=== PATIENT | female | born 1960 | race Two or more races ===

== ENCOUNTER 2021-01-08 12:21 | Outpatient (CLI) | payer OTHER | END 2021-01-08 23:59 | disposition home or self-care (01) | LOC: LAB 12:21 | PROVIDERS: ATTEND Specialist | DX: Z01.812 Encounter for preprocedural laboratory examination (principal); Z20.822 Contact with and (suspected) exposure to COVID-19 | CPT/HCPCS: C9803; U0003 ==

== ENCOUNTER 2021-01-15 06:46 | Inpatient (IN) | payer OTHER ==
[~2021-01-15] VITALS: Ht 157.5 cm; Wt 111.1 kg
[2021-01-15] MEDS ORDERED: ANESTHESIA TRAY IN PYXIS 1 EA TRAY MC ONE (07:16)
[2021-01-15] MEDS ORDERED: BUPIVACAINE 0.5 % PF 150 MG/30 ML VIAL ONE (07:17)
[2021-01-15] MEDS ORDERED: BACITRACIN 50000 UNITS/VIAL ONE (07:18)
[2021-01-15] MEDS ORDERED: BUPIVACAINE 0.25% 75 MG/30 ML VIAL ONE (07:18)
[2021-01-15] MEDS ORDERED: PROPOFOL 20 ML IV ONE (08:56)
[2021-01-15] MEDS ORDERED: MIDAZOLAM HCL 2 MG/2ML VIAL ONE (08:56)
[2021-01-15] MEDS ORDERED: FENTANYL PF 100MCG/2ML AMPUL ONE ×2 (08:56→10:38)
[2021-01-15] MEDS ORDERED: TRANEXAMIC ACID 3,000 MG in SODIUM CHLORIDE IRRIG SOLUTION 70 ML IR ONE (09:30)
[2021-01-15] MEDS ORDERED: HYDROMORPHONE 1 MG/1 ML DISP.SYRIN ONE (11:03)
[2021-01-15] MEDS ORDERED: ZOFRAN 4mg/2ML IV PRN (11:30)
--- NOTE | 2021-01-15 11:30 | NUR ---
RN MS NOTES RECEIVED PT FROM O.R. STAFF VIA BED, PT IS AWAKE, ALERT AND VERBALLY RESPONSIVE, ROOM SET UP ORIENTATION PROVIDED, VERBALIZED UNDERSTANDING, WITH COMPLAINT OF PAIN TO RIGHT KNEE, DRESSING DRY AND INTACT, KNEE IMMOBILIZER IN PLACE, DVT PUMP TO LEFT LEG IN PLACE, VITAL SIGNS TAKEN AND RECORDED, POST OP ORDERS RECEIVED FROM DR. CONN, NOTED AND CARRIED OUT, AWAITING FURTHER ORDERS FROM DR. RECINOS.
[2021-01-15 11:45] VITALS: BP 162/72
[2021-01-15 12:00] VITALS: BP 145/74
[2021-01-15 12:15] VITALS: BP 134/66
[2021-01-15 12:30] VITALS: BP 133/71
[2021-01-15] MEDS ORDERED: MORPHINE SULFATE INJ 2 MG/ML DISP.SYRIN IV PRN (12:30)
[2021-01-15] MEDS ORDERED: diphenhydrAMINE HCL 25 MG CAPSULE PO PRN ×2 (12:30)
[2021-01-15] MEDS ORDERED: MAGNESIUM HYDROXIDE 30 ML UDC PO PRN (12:30)
[2021-01-15] MEDS ORDERED: NALOXONE HCL 0.4 MG/ML AMPUL IV PRN (12:30)
[2021-01-15] MEDS ORDERED: BISACODYL SUPP (10 MG) 10 MG/SUPP.RECT SUPP.RECT RC PRN (12:30)
[2021-01-15] MEDS ORDERED: ONDANSETRON HCL/PF 4 MG/2 ML VIAL IVP PRN (12:30)
[2021-01-15] MEDS ORDERED: MENTHOL/CETYLPYRD (CEPACOL) 1 LOZ LOZENGE MM PRN (12:30)
[2021-01-15] MEDS ORDERED: MAG HYDROX/AL HYDROX/SIMETH 30 ML UDC PO PRN (12:30)
[2021-01-15] MEDS ORDERED: CLONIDINE HCL 0.1 MG TABLET PO PRN (12:30)
[2021-01-15] MEDS: MORPHINE SULFATE INJ 4 MG/ML DISP.SYRIN IM PRN ×2 (12:34→18:58)
[2021-01-15] MEDS ORDERED: TRAM50TA2 PO (12:44)
[2021-01-15] MEDS ORDERED: GABA-532 PO (12:44)
[2021-01-15] MEDS ORDERED: MAGN400T26 PO (12:44)
[2021-01-15] MEDS ORDERED: BUPR-54 PO (12:44)
[2021-01-15] MEDS ORDERED: OXYC-133 PO (12:44)
[2021-01-15] MEDS ORDERED: oxyCODONE IR immediate release 5 MG PO PRN (13:00)
[2021-01-15] MEDS ORDERED: ZOLPIDEM TARTRATE 5 MG TABLET PO PRN (13:30)
[2021-01-15] MEDS ORDERED: Z GUARD REMEDY 2 OZ OINT TP PRN (13:30)
[2021-01-15] MEDS ORDERED: oxyCODONE IR immediate release 5 MG PO ONE (14:34)
[2021-01-15] MEDS ORDERED: ONDANSETRON HCL/PF 4 MG/2 ML VIAL IVP ONE (14:34)
[2021-01-15] MEDS: BUPROPION XL 150 MG TAB.ER.24 PO SCH (14:57)
[2021-01-15] MEDS: MAGNESIUM OXIDE 400 MG TABLET PO SCH (14:57)
[2021-01-15] MEDS: MORPHINE SULFATE INJ 2 MG/ML DISP.SYRIN IV PRN ×2 (15:48→22:16)
[2021-01-15 16:00] VITALS: BP 128/68
[2021-01-15] MEDS: ANCEF 1 G in IV D5W 50 ML IV SCH (17:54)
[2021-01-15] MEDS: FAMOTIDINE (20 MG) 20 MG TABLET PO SCH (17:57)
[2021-01-15] MEDS: DOCUSATE SODIUM 100 MG CAPSULE PO SCH (17:57)
--- NOTE | 2021-01-15 19:15 | NUR ---
RN MS NOTES PT IN BED, AWAKE, ALERT AND ORIENTED, PT SEEN BY DR. RECINOS, NEW ORDERS GIVEN, PAIN MEDS GIVEN ORDERED, ASSISTED WITH TOILETING NEEDS, ALL NEEDS ATTENDED.
--- NOTE | 2021-01-15 19:30 | NUR ---
MS RN OPENING NOTE RECEIVED PATIENT IN BED. A/OX4. TOLERATING ROOM AIR. RESPIRATIONS ARE EVEN AND UNLABORED. NO S/S SOB NOTED. C/O PAIN BUT JUST RECEIVED PAIN MEDICATION. IN NO APPARENT DISTRESS. IV ACCESS IN LEFT HAND#22 PATENT AND SALINE LOCKED. BED IS LOW AND LOCKED, HOB ELEVATED IN SEMI FOWLERS, SIDE RIALS UP X2, CALL LIGHT WITHIN REACH. WILL CONTINUE TO MONITOR THROUGHOUT SHIFT.
[2021-01-15 20:00] VITALS: BP 123/64
[2021-01-15] MEDS: GABAPENTIN 100 MG CAPSULE PO SCH (21:21)
[2021-01-16] MEDS: ANCEF 1 G in IV D5W 50 ML IV SCH
[2021-01-16] MEDS: MORPHINE SULFATE INJ 2 MG/ML DISP.SYRIN IV PRN ×5 (02:30→17:56)
--- NOTE | 2021-01-16 06:00 | NUR ---
MS RN NOTE DR. RECINOS SEEN PATIENT, STATED TO GIVE MORPHINE 3MG IV NOW AND GIVE OXY -IR WITH BREAKFAST. ORDER STATED BACK, NOTED AND CARRIED OUT. WILL INFORM AM RN TO GIVE OXY-IR WITH BREAKFAST BREAKFAST TRAY ARRIVES ON DAY SHIFT.
[2021-01-16 06:03] LABS: BASOPHILS % (AUTO) 0.1 % (0.0-2.0); EOSINOPHILS % (AUTO) 0.3 % (0.0-6.0); HEMATOCRIT 37 % (33-45); HEMOGLOBIN 11.9 g/dL (11.5-14.8); LYMPHOCYTES # (AUTO) 1.3 /CMM (0.8-4.8); MEAN CORPUSCULAR HGB CONC 32 g/dl (31.0-36.0); MEAN CORPUSCULAR VOLUME 88 fL (82-100); MONOCYTES % (AUTO) 6.8 % (2.0-12.0); NEUTROPHILS # (AUTO) 12.5 /CMM (1.8-8.9); NEUTROPHILS % (AUTO) 83.8 % (43.0-81.0); PLATELET COUNT (AUTO) 256 /CMM (150-450); RED BLOOD CELL COUNT(AUTO) 4.17 MIL/uL (4.0-5.2); WHITE BLOOD COUNT (AUTO) 14.9 K/uL (4.3-11.0)
[2021-01-16 06:16] LABS: CALCIUM, SERUM 8.5 mg/dL (8.5-10.1); CREATININE 0.9 mg/dL (0.6-1.3); MAGNESIUM 2.2 mg/dL (1.8-2.4); PHOSPHORUS 3.3 mg/dL (2.5-4.9); POTASSIUM 4.4 mmol/L (3.5-5.1)
--- NOTE | 2021-01-16 06:53 | NUR ---
MS RN CLOSING NOTE PATIENT RESTING IN BED. A/OX4. REMAINS TOLERATING ROOM AIR. NO RESP DISTRESS. MANAGED PAIN WITH MORPHINE. NO DISTRESS. IV ACCESS MAINTAINED IN LEFT HAND#22. BED REMAINS LOW AND LOCKED, HOB ELEVATED IN SEMI FOWLERS, SIDE RIALS UP X2, CALL LIGHT WITHIN REACH. WILL ENDORSE TO ONCOMING SHIFT.
[2021-01-16 08:00] VITALS: BP 150/61
[2021-01-16] MEDS: MAGNESIUM OXIDE 400 MG TABLET PO SCH (08:22)
[2021-01-16] MEDS: ASPIRIN EC 325 MG TABLET.DR PO SCH (08:22)
[2021-01-16] MEDS: BUPROPION XL 150 MG TAB.ER.24 PO SCH (08:22)
[2021-01-16] MEDS: oxyCODONE IR immediate release 5 MG PO PRN ×4 (08:22→20:23)
[2021-01-16] MEDS: FAMOTIDINE (20 MG) 20 MG TABLET PO SCH ×2 (08:23→17:51)
[2021-01-16] MEDS: DOCUSATE SODIUM 100 MG CAPSULE PO SCH ×2 (08:24→17:52)
[2021-01-16] MEDS ORDERED: COLACE 100 MG CAPSULE PO SCH (09:00)
[2021-01-16] MEDS ORDERED: Naloxone Hcl IV (11:44)
[2021-01-16] MEDS ORDERED: DOCU-270 PO (11:44)
[2021-01-16] MEDS ORDERED: OXYC5CAP18 PO (11:44)
[2021-01-16] MEDS ORDERED: FAMO20TA80 PO (11:44)
[2021-01-16] MEDS ORDERED: Morphine Sulfate Inj IV (11:44)
[2021-01-16] MEDS ORDERED: ASPI-869 PO (11:44)
[2021-01-16 16:00] VITALS: BP 149/81
--- NOTE | 2021-01-16 17:07 | NUR ---
medicated x 3 with oxy-ir and x2 with morphine.up x2 with phy tx.tolerated fairly well.
--- NOTE | 2021-01-16 19:52 | NUR ---
MS RN OPENING NOTE RECEIVED PT AWAKE IN BED. A/O X4. PT STABLE ON ROOM AIR. NO SOB NOTED. NO S/S OF RESPIRATORY DISTRESS. PT IS AMBULATORY WITH ASSIST. PT HAS NO C/O PAIN AT THIS TIME. IV ACCESS IN LEFT HAND #22. IV IS INTACT, PATENT, AND FLUSHING WELL. SAFETY MEASURES MAINTAINED. BED IN LOWEST LOCKED POSITION, HOB ELEVATED, SIDE RAILS UP X2. CALL LIGHT AND TABLE WITHIN REACH. WILL CONTINUE WITH PLAN OF CARE.
[2021-01-16 20:00] VITALS: BP 144/75
--- NOTE | 2021-01-16 20:23 | NUR ---
MS RN PAIN PT C/O ACHING PAIN IN RIGHT KNEE, RATED 8/10 ON 1-10 PAIN SCALE. VS BP 144/25, HR 83, RR 18, T 98.2, SPO2 95%. PER PT REQUEST, ADMINISTERED OXYCODONE IR 10 MG PO Q3H PRN FOR PAIN. WILL CONTINUE TO MONITOR.
[2021-01-16] MEDS: GABAPENTIN 100 MG CAPSULE PO SCH (21:47)
[2021-01-17] MEDS: MORPHINE SULFATE INJ 2 MG/ML DISP.SYRIN IV PRN (00:11)
--- NOTE | 2021-01-17 00:11 | NUR ---
MS RN PAIN PT C/O ACHING PAIN IN RIGHT KNEE, RATED 6/10 ON 1-10 PAIN SCALE. VS BP 152/69, HR 83, RR 18, T 98.0, SPO2 98%. PER PT REQUEST, ADMINISTERED MORPHINE SULFATE 3 MG IV Q3H PRN FOR PAIN. WILL CONTINUE TO MONITOR.
[2021-01-17] MEDS: oxyCODONE IR immediate release 5 MG PO PRN ×6 (03:37→23:39)
--- NOTE | 2021-01-17 03:37 | NUR ---
MS RN PAIN PT C/O ACHING PAIN IN RIGHT KNEE, RATED 9/10 ON 1-10 PAIN SCALE. VSS. PER PT REQUEST, ADMINISTERED OXYCODONE IR 10 MG PO Q3H PRN FOR PAIN. WILL CONTINUE TO MONITOR.
--- NOTE | 2021-01-17 04:40 | NUR ---
DR. RECINOS CALLED AND WAS UPDATED ON PTS CONDITION AND PAIN MANAGEMENT..
--- NOTE | 2021-01-17 06:03 | NUR ---
MS RN CLOSING NOTE PT IS AWAKE IN BED AT THIS TIME. A/O X4. PT STABLE ON ROOM AIR. NO SOB NOTED. NO S/S OF RESPIRATORY DISTRESS. PT IS AMBULATORY WITH ASSIST. IV ACCESS IS INTACT, PATENT, AND FLUSHING WELL. ALL NEEDS HAVE BEEN MET. PAIN MANAGEMENT ADMINISTERED PER ORDER. SAFETY MEASURES MAINTAINED AT ALL TIMES. BED IN LOWEST LOCKED POSITION, HOB ELEVATED, SIDE RAILS UP X2. CALL LIGHT AND TABLE WITHIN REACH. WILL ENDORSE TO ONCOMING NURSE FOR MELISSA.
[2021-01-17 07:55] VITALS: BP 132/70
--- NOTE | 2021-01-17 08:02 | NUR ---
MS RN OPENING NOTES RECEIVED PATIENT IN BED, AWAKE, A/O X4. PATIENT ON ROOM AIR; BREATHING IS EVEN AND UNLABORED; NO SOB PRESENT AT THIS TIME. NO COMPLAINS OF ACUTE PAIN. L HAND IV ACCESS G # 22 PRESENT AND INTACT. SAFETY PRECAUTIONS IN PLACE; BED IN LOW POSITION AND LOCKED, RAILS UP X2, CALL LIGHT WITHIN REACH. WILL CONTINUE TO MONITOR PATIENT.
[2021-01-17] MEDS: DOCUSATE SODIUM 100 MG CAPSULE PO SCH ×2 (08:30→16:10)
[2021-01-17] MEDS: MAGNESIUM OXIDE 400 MG TABLET PO SCH (08:30)
[2021-01-17] MEDS: BUPROPION XL 150 MG TAB.ER.24 PO SCH (08:30)
[2021-01-17] MEDS: FAMOTIDINE (20 MG) 20 MG TABLET PO SCH ×2 (08:30→16:10)
[2021-01-17] MEDS: ASPIRIN EC 325 MG TABLET.DR PO SCH (08:30)
[2021-01-17] MEDS ORDERED: MAGNESIUM HYDROXIDE 30 ML UDC PO ONE (09:44)
[2021-01-17 16:46] VITALS: BP 151/78
--- NOTE | 2021-01-17 18:52 | NUR ---
MS RN CLOSING NOTES PATIENT REMAINS IN BED, AWAKE, A/O X4. PATIENT ON ROOM AIR; BREATHING IS EVEN AND UNLABORED; NO SOB PRESENT AT THIS TIME. PAIN TREATED WITH PRN PAIN MEDICATION. L HAND IV ACCESS G # 22 PRESENT AND INTACT. ALL NEEDS ATTENDED THROUGHOUT THE DAY. SAFETY PRECAUTIONS IN PLACE; BED IN LOW POSITION AND LOCKED, RAILS UP X2, CALL LIGHT WITHIN REACH. WILL ENDORSE TO CIRCULAR SAWYER HELPER NURSE.
[2021-01-17 20:00] VITALS: BP 125/67
[2021-01-17] MEDS: GABAPENTIN 100 MG CAPSULE PO SCH (21:55)
--- NOTE | 2021-01-17 23:39 | NUR ---
MS RN PAIN PT C/O ACHING PAIN IN RIGHT KNEE, RATED 8/10 ON 1-10 PAIN SCALE. VS BP 125/67, HR 95, RR 18, T 98.2, SPO2 99%. PER PT REQUEST, ADMINISTERED OXYCODONE IR 10 MG PO Q3H PRN FOR PAIN. WILL CONTINUE TO MONITOR.
[2021-01-18] MEDS: oxyCODONE IR immediate release 5 MG PO PRN ×5 (03:00→21:33)
[2021-01-18] MEDS: ASPIRIN EC 325 MG TABLET.DR PO SCH (07:45)
--- NOTE | 2021-01-18 07:58 | NUR ---
MS RN OPENING NOTE RECEIVED PT AWAKE IN BED. A/O X4. PT STABLE ON ROOM AIR. NO SOB NOTED. NO S/S OF RESPIRATORY DISTRESS. PT IS AMBULATORY WITH ASSIST. PT HAS NO C/O PAIN AT THIS TIME. IV ACCESS IN LEFT HAND #22. IV IS INTACT, PATENT, AND FLUSHING WELL. SAFETY MEASURES MAINTAINED. BED IN LOWEST LOCKED POSITION, HOB ELEVATED, SIDE RAILS UP X2. CALL LIGHT AND TABLE WITHIN REACH AND ANSWERED PROMPTLY
[2021-01-18 08:00] VITALS: BP 155/70
[2021-01-18] MEDS: BUPROPION XL 150 MG TAB.ER.24 PO SCH (08:13)
[2021-01-18] MEDS: MAGNESIUM OXIDE 400 MG TABLET PO SCH (08:13)
[2021-01-18] MEDS: DOCUSATE SODIUM 100 MG CAPSULE PO SCH ×2 (08:13→17:37)
[2021-01-18] MEDS: FAMOTIDINE (20 MG) 20 MG TABLET PO SCH ×2 (08:13→17:38)
[2021-01-18 13:03] LABS: BASOPHILS # (AUTO) 0.1 /CMM (0.0-0.2); BASOPHILS % (AUTO) 0.5 % (0.0-2.0); EOSINOPHILS % (AUTO) 2.5 % (0.0-6.0); HEMATOCRIT 34 % (33-45); HEMOGLOBIN 11.3 g/dL (11.5-14.8); LYMPHOCYTES # (AUTO) 1.6 /CMM (0.8-4.8); LYMPHOCYTES % (AUTO) 15.4 % (20.0-44.0); MEAN CORPUSCULAR HGB CONC 33 g/dl (31.0-36.0); MEAN CORPUSCULAR VOLUME 87 fL (82-100); MONOCYTES # (AUTO) 0.8 /CMM (0.1-1.30); MONOCYTES % (AUTO) 7.7 % (2.0-12.0); NEUTROPHILS # (AUTO) 7.7 /CMM (1.8-8.9); NEUTROPHILS % (AUTO) 73.9 % (43.0-81.0); PLATELET COUNT (AUTO) 212 /CMM (150-450); RED BLOOD CELL COUNT(AUTO) 3.89 MIL/uL (4.0-5.2); WHITE BLOOD COUNT (AUTO) 10.4 K/uL (4.3-11.0)
[2021-01-18 13:11] LABS: CALCIUM, SERUM 8.4 mg/dL (8.5-10.1); CREATININE 0.8 mg/dL (0.6-1.3); MAGNESIUM 2.1 mg/dL (1.8-2.4); POTASSIUM 4.3 mmol/L (3.5-5.1)
[2021-01-18 16:00] VITALS: BP 153/76
--- NOTE | 2021-01-18 17:15 | NUR ---
MS MONISHA OPENING NOTES Patient is awake, A&Ox4. States that pain went down to a 3 and is tolerable. States that her R knee is very sore though and she was able to use her CPM machine several times already today and walked around several times with and without PT. Patient refuses to use CPM machine tonight before bed, but states she will in the morning. No other issues at this time. No signs of distress. Safety measures in place. Addendum: 01/18/21 at 2039 by BRIAN HERNANDEZ RN amendment: time should be [id number] not [id number]
--- NOTE | 2021-01-18 18:34 | NUR ---
MS RN CLOSING NOTE RECEIVED PT AWAKE IN BED. A/O X4. PT STABLE ON ROOM AIR. NO SOB NOTED. NO S/S OF RESPIRATORY DISTRESS. PT IS AMBULATORY WITH ASSIST. PT HAS NO C/O PAIN AT THIS TIME. IV ACCESS IN LEFT HAND #22. IV IS INTACT, PATENT, AND FLUSHING WELL. SAFETY MEASURES MAINTAINED. BED IN LOWEST LOCKED POSITION, HOB ELEVATED, SIDE RAILS UP X2. CALL LIGHT AND TABLE WITHIN REACH AND ANSWERED PROMPTLY
--- NOTE | 2021-01-18 19:15 | NUR ---
MS RN OPENING NOTES Patient is awake, A&Ox4. States that pain went down to a 3 and is tolerable. States that her R knee is very sore though and she was able to use her CPM machine several times already today and walked around several times with and without PT. Patient refuses to use CPM machine tonight before bed, but states she will in the morning. No other issues at this time. No signs of distress. Safety measures in place.
[2021-01-18 20:16] VITALS: BP 143/68
--- NOTE | 2021-01-18 20:40 | NUR ---
Patient's IV flushed with saline where it was seen to be infiltrated. No pain, redness, or swelling. IV removed. Patient refused to have new IV inserted -stating she does not need or want it. Educated pt x3 that it is good to have in case of emergencies and if she needs her PRN Morphine. Still refused.
[2021-01-18] MEDS: GABAPENTIN 100 MG CAPSULE PO SCH (21:32)
--- NOTE | 2021-01-18 22:06 | NUR ---
MS RN NOTES Patient c/o pain to R knee. PRN Oxycodone IR given as per patient request and md order. Patient was then agreeable to use the CPM machine because she said she was able to take a nap and has more energy.
[2021-01-18 23:30] LABS: BILIRUBIN,URINE NEGATIVE (NEGATIVE); COLOR,URINE YELLOW (YELLOW); LEUKOCYTE ESTERASE ,URINE NEGATIVE (NEGATIVE); NITRITE, URINE NEGATIVE (NEGATIVE); PH,URINE 6.5 (5.0-8.0); PROTEIN,URINE NEGATIVE (NEGATIVE); UGLUCOSE NEGATIVE (NEGATIVE); UROBILINOGEN,URINE 0.2 EU/dL (0.2)
[2021-01-18 23:40] LABS: BACTERIA,URINE None seen /HPF (None Seen); RBC,URINE 0-2 /HPF (0-2); WBC,URINE 0-2 /HPF (0-3)
[2021-01-18 23:41] LABS: SQUAMOUS EPITHELIAL CELL,UR Few /HPF (None Seen)
[2021-01-19] MEDS: oxyCODONE IR immediate release 5 MG PO PRN ×6 (02:10→21:46)
--- NOTE | 2021-01-19 02:10 | NUR ---
MS RN NOTES Patient c/o 9/10 pain to R knee after waking and ambulating to bathroom with assist. Patient requests Pain medication. Oxycodone IR given as ordered.
--- NOTE | 2021-01-19 02:15 | NUR ---
MS RN NOTES Patient states she feels a little constipated but does not want MOM because last time it was too harsh and caused explosive diarrhea. Prune juice offered -pt accepted and is waiting to see for effect.
--- NOTE | 2021-01-19 05:15 | NUR ---
MS RN NOTES Patient c/o 10/10 R knee pain. PRN Oxycodone given as ordered. Ice pack also given.
--- NOTE | 2021-01-19 06:18 | NUR ---
MS RN CLOSING NOTES Patient is A&O4. VSS. Afebrile. C/o pain to R knee x3 throughout the night but after PO pain medication administration pain became tolerable. Continue with pain regimen as ordered and requested. Tolerated CPM machine. is motivated to increase activity as tolerated. Uses incentive spirometer correctly during waking hours.
--- NOTE | 2021-01-19 07:40 | NUR ---
MS RN OPENING NOTE RECEIVED PATIENT AWAKE IN BED. A/O X4. PT STABLE ON ROOM AIR. NO SOB NOTED, NO S/S OF RESPIRATORY DISTRESS. MINIMAL PAIN AT THIS TIME. DR. RECINOS AT BEDSIDE. PT IS AMBULATORY WITH ASSIST. NO IV ACCESS - PATIENT DOES NOT WANT A NEW ONE. SAFETY MEASURES MAINTAINED. CALL LIGHT WITHIN REACH. WILL CONTINUE TO MONITOR.
[2021-01-19] MEDS: MAGNESIUM OXIDE 400 MG TABLET PO SCH (08:26)
[2021-01-19] MEDS: BUPROPION XL 150 MG TAB.ER.24 PO SCH (08:26)
[2021-01-19] MEDS: DOCUSATE SODIUM 100 MG CAPSULE PO SCH ×2 (08:26→16:13)
[2021-01-19] MEDS: FAMOTIDINE (20 MG) 20 MG TABLET PO SCH ×2 (08:26→16:13)
[2021-01-19] MEDS: ASPIRIN EC 325 MG TABLET.DR PO SCH (08:27)
--- NOTE | 2021-01-19 18:54 | NUR ---
MS RN CLOSING NOTE PATIENT CURRENTLY LYING IN BED, AWAKE. A/O X4. PT STABLE ON ROOM AIR. NO SOB NOTED, NO S/S OF RESPIRATORY DISTRESS. MINIMAL PAIN AT THIS TIME. ON CPM FOR 2HOURS AT A TIME, TID. PATIENT IS VERY MOTIVATED TO RECOVER. AMBULATORY WITH WALKER. NO IV ACCESS - PATIENT REFUSES, SAYS SHE IS FINE WITH THE OXY IR 10MG. SAFETY MEASURES MAINTAINED. CALL LIGHT WITHIN REACH. WILL ENDORSE TO COMPETITIVE INTELLIGENCE MANAGER NURSE FOR MELISSA.
--- NOTE | 2021-01-19 19:40 | NUR ---
MS RN NOTES RECEIVED ON BED CALM AND QUIET,S/P RIGHT TOTAL KNEE ARTHROPLASTY,DRESSING IN PLACE DRY AND INTACT,NO IV ACCESS,PATIENT REFUSED.ENCOURAGED TO USE INCENTIVE SPIROMETRY FOR LUNG EXERCISE WHILE AWAKE,WILL MONITOR FOR PAIN,CALL LIGHT IN REACH,NEEDS ANTICIPATED.
[2021-01-19 20:00] VITALS: BP 118/58
[2021-01-19] MEDS: GABAPENTIN 100 MG CAPSULE PO SCH (21:23)
--- NOTE | 2021-01-19 21:46 | NUR ---
MS RN NOTES C/O PAIN 8/10 ON PAIN SALE VIA RIGHT KNEE,POST AMBULATION FROM THE RESTROOM.,MEDICATED WITH OXY IR 10 MG PO ORDERED FOR SEVERE PAIN.WILL MONITOR FOR RELIEF.
--- NOTE | 2021-01-19 23:00 | NUR ---
MS RN NOTES LYING ON BED CALM AND RELAX.
--- NOTE | 2021-01-20 | NUR ---
MS RN NOTES AWAKE,ASKING AGAIN FOR PAIN MANAGEMENT.FEELING UNCOMFORTABLE WITH BROWN ELASTIC BANDAGE,FIXED AND REWRAPPED.
[2021-01-20] MEDS: oxyCODONE IR immediate release 5 MG PO PRN ×5 (00:42→20:06)
--- NOTE | 2021-01-20 00:42 | NUR ---
MS RN NOTES PAIN MANAGEMENT C/O RIGHT KNEE PAIN 8/10 ON PAIN SCALE,OXY IR 10MG PO GIVENAS ORDERED AND PER PATIENT REQUEST.
--- NOTE | 2021-01-20 04:40 | NUR ---
MS RN NOTES PAIN MANAGEMENT AWAKE,IN PAIN 9/10 ON PAIN SCALE,OXY IR 10MG PO GIVEN ORDERED AND PER PATIENT REQUEST.
--- NOTE | 2021-01-20 06:30 | NUR ---
MS RN NOTES STILL WITH EPISODE OF ON AND OFF NON BEARABLE PAIN ON THE RIGHT KNEE,MEDICATED WITH OX IR Q 3 HOURS ORDERED.AMBULATES WITH WALKER,DRESSING TO RIGHT KNEE INTACT AND DRY.IN NO ACUTE DISTRES,CALL LIGHT IN REACH,NEEDS ATTENDED.
[2021-01-20] MEDS: FAMOTIDINE (20 MG) 20 MG TABLET PO SCH ×2 (08:07→16:59)
[2021-01-20] MEDS: MAGNESIUM OXIDE 400 MG TABLET PO SCH (08:07)
[2021-01-20] MEDS: BUPROPION XL 150 MG TAB.ER.24 PO SCH (08:07)
[2021-01-20] MEDS: DOCUSATE SODIUM 100 MG CAPSULE PO SCH ×2 (08:08→16:59)
[2021-01-20] MEDS: ASPIRIN EC 325 MG TABLET.DR PO SCH (08:09)
--- NOTE | 2021-01-20 08:10 | NUR ---
RN OPENING NOTE RECEIVED PATIENT IN BED, AO X 4, ABLE TO RESPONDS ALL STIMULI. C/O S/P RIGHT KNEE PAIN AND GIVEN OXY IR NEEDED PAIN MEDICATION. SKIN IS WARM TO TOUCH, KEEP CLEAN/DRY INTACT IV SITE. RESPIRATORY EVEN AND UNLABORED IN ROOM AIR. KEPT ELEVATED HOB FOR ENSURE AIR AND ASPIRATION PRECAUTION, ALSO LOWEST BED POSITION FOR SAFETY. CALL LIGHT WITHIN REACH, WILL CONTINUE TO MONITOR.
[2021-01-20 08:58] VITALS: BP 153/69
[2021-01-20 16:23] VITALS: BP 98/47
--- NOTE | 2021-01-20 18:11 | NUR ---
RN CLOSING NOTE PATIENT RESTING IN BED, REMAINS AO X 4. GIVEN OXY IR THIS AFTERNOON FOR S/P RIGHT KNEE ARTHROPLASTY. SKIN IS WARM TOUCH, KEEP CLEAN/DRY. RESPIRATORY EVEN AND UNLABORED IN ROOM AIR. KEPT ELEVATED HOB FOR ENSURE AIRWAY AND ASPIRATION PRECAUTION, ALSO LOWEST BED POSITION FOR SAFETY. CALL LIGHT WITHIN REACH, WILL ENDORSE DELIVERY AND MAIL SORTER.
--- NOTE | 2021-01-20 19:39 | NUR ---
MS RN OPENING NOTE PATIENT RESTING IN BED, AO X 4; ABLE TO MAKE NEEDS KNOWN . TOLERATING ROOM AIR WELL WITH NO SOB OR DISTRESS. S/P RIGHT KNEE ARTHROPLASTY; DRESSING KEPT C/D/I. SKIN IS WARM TOUCH, KEEP CLEAN/DRY. R HAND #20G; PATENT AND INTACT. SAFETY PRECAUTION IN PLACE: BED IN LOWEST LOCKED POSITION, SIDE RAILS UPX2, CALL LIGHT WITHIN EASY REACH, BED ALARMS ON. PATIENT IS STABLE AND IN NO DISTRESS: WILL CONTINUE PLAN OF CARE.
[2021-01-20 20:00] VITALS: BP 110/76
--- NOTE | 2021-01-20 20:06 | NUR ---
MS RN NOTE - PAIN PATIENT C/O 8 R LEG PAIN. ADMINISTERED OXY IR ORDERED. WILL REASSESS FOR PATIENTS PAIN WITHIN 1 HOUR. APPLIED LEG CONTRAPTION TO RIGHT LEG FOR EXERCISE.
[2021-01-20] MEDS: GABAPENTIN 100 MG CAPSULE PO SCH (21:40)
--- NOTE | 2021-01-20 21:50 | NUR ---
MS RN NOTE PATIENT C/O PAIN. REMOVED CONTRAPTION UNDER PATIENTS RIGHT LEG; TOTAL OF 1.5 HOURS TOLERATED. ELEVATED PATIENT'S LEG AND APPLIED ICE TO THIGH 15 MINUTES ON, 15 MINUTES OFF. PATIENT VERBALIZED UNDERSTANDING.
[2021-01-21] MEDS: oxyCODONE IR immediate release 5 MG PO PRN ×5 (00:41→21:26)
--- NOTE | 2021-01-21 00:41 | NUR ---
MS RN NOTE - PAIN PATIENT C/O 06/01 R KNEE PAIN. ADMINISTERED OXY IR ORDERED. WILL REASSESS FOR PATIENTS PAIN WITHIN 1 HOUR.
--- NOTE | 2021-01-21 05:53 | NUR ---
MS RN NOTE - PAIN PATIENT C/O 9/10 R KNEE PAIN. ADMINISTERED OXY IR ORDERED. WILL REASSESS FOR PATIENTS PAIN WITHIN 30 MINUTES. PATIENT IN THE BATHROOM DOING ADLS.
--- NOTE | 2021-01-21 06:01 | NUR ---
MS RN CLOSING NOTE PATIENT RESTING IN BED, A/O X 4; ABLE TO MAKE NEEDS KNOWN . TOLERATING ROOM AIR WELL WITH NO SOB OR DISTRESS. S/P RIGHT KNEE ARTHROPLASTY; JO ANN AND DRESSING KEPT C/D/I. SKIN IS WARM TOUCH, KEEP CLEAN/DRY. REFUSED IV ACCESS AND MD AWARE. SAFETY PRECAUTION IN PLACE: BED IN LOWEST LOCKED POSITION, SIDE RAILS UPX3, CALL LIGHT WITHIN EASY REACH, BED ALARMS ON. PATIENT IS STABLE AND IN NO DISTRESS: WILL ENDORSE PLAN OF CARE TO ONCOMING MORNING RN.
--- NOTE | 2021-01-21 07:43 | NUR ---
RN OPENING NOTE RECEIVED PATIENT IN BED, AO X 4, ABLE TO RESPONDS ALL STIMULI. DOES NO C/O PAIN OR DISTRESS AT THIS TIME. SKIN IS WARM TO TOUCH, KEEP CLEAN/DRY INTACT IV SITE. RESPIRATORY EVEN AND UNLABORED IN ROOM AIR. KEPT ELEVATED HOB FOR ENSURE AIR AND ASPIRATION PRECAUTION, ALSO LOWEST BED POSITION FOR SAFETY. CALL LIGHT WITHIN REACH, WILL CONTINUE TO MONITOR.
[2021-01-21 08:00] VITALS: BP 145/62
[2021-01-21] MEDS: FAMOTIDINE (20 MG) 20 MG TABLET PO SCH ×2 (08:33→16:47)
[2021-01-21] MEDS: BUPROPION XL 150 MG TAB.ER.24 PO SCH (08:33)
[2021-01-21] MEDS: ASPIRIN EC 325 MG TABLET.DR PO SCH (08:34)
[2021-01-21] MEDS: MAGNESIUM OXIDE 400 MG TABLET PO SCH (08:34)
[2021-01-21] MEDS: DOCUSATE SODIUM 100 MG CAPSULE PO SCH ×2 (08:34→16:47)
[2021-01-21 16:03] VITALS: BP 133/66
--- NOTE | 2021-01-21 17:40 | NUR ---
RN CLOSING NOTE PATIENT RESTING IN BED, REMAINS AO X 4. SKIN IS WARM TOUCH, KEEP CLEAN/DRY. RESPIRATORY EVEN AND UNLABORED IN ROOM AIR. GIVEN OXY IR THIS AFTERNOON FOR S/P RIGHT KNEE ARTHROPLASTY FOR PAIN. KEPT ELEVATED HOB FOR ENSURE AIRWAY AND ASPIRATION PRECAUTION, ALSO LOWEST BED POSITION FOR SAFETY. CALL LIGHT WITHIN REACH, WILL ENDORSE ACTIVITIES COORDINATOR.
[2021-01-21 20:00] VITALS: BP 131/64
--- NOTE | 2021-01-21 20:00 | NUR ---
MS RN OPENING NOTES Patient is awake, A&Ox4. Able to make needs known. Currently in 2/10 pain which patient reports is tolerable. Patient also states that prune juice has been able to keep her BMs regular so the pain medication doesn't constipate her too much. x2 prune juices given to patient. Re-wrapped leg wrap as patient stated it was too tight and hurting. Perfusion to lower extremity good cap refill < 3 seconds. No other complaints at this time.
[2021-01-21] MEDS: GABAPENTIN 100 MG CAPSULE PO SCH (21:25)
--- NOTE | 2021-01-21 21:37 | NUR ---
MS RN NOTES Patient c/o 8/10 pain to R knee/leg after ambulating with walker in the hallway. Given PRN Oxycodone IR as ordered.
[2021-01-22] MEDS: oxyCODONE IR immediate release 5 MG PO PRN ×3 (01:48→11:01)
--- NOTE | 2021-01-22 01:55 | NUR ---
MS RN NOTES Patient c/o 04/01 to R knee/leg after waking up and ambulating to the bathroom. PRN Oxycodone given as ordered.
--- NOTE | 2021-01-22 06:31 | NUR ---
MS RN CLOSING NOTES Patient is A&Ox4. VSS. Pain able to be managed with PRN medication administration. Patient seen ambulating in the hallway with walker and mask on. Very motivated to increase activity as tolerated. No s/s of redness or discharge at surgical site to R knee -healing well. Still mild swelling at surgical site noted. Patient shows no signs of distress. Able to makeneeds known. All needs met by staff.
--- NOTE | 2021-01-22 07:25 | NUR ---
MS RN OPENING NOTE RECEIVED PATIENT IN BED. A/O X4. ON ROOM AIR, TOLERATING WELL. NO SOB NOTED. IN NO APPARENT DISTRESS. PT. REFUSED TO HAVE IV ACCESS. PATIENT VERBALIZING PAIN 7/10 ON THE R LEG. OXY IR JUST GIVEN AT 0700 BY NIGHT NURSE. SAFETY MEASURES MAINTAINED. BED IN LOWEST POSITION, BRAKES LOCKED. SIDE RAILS UP X2. CALL LIGHT WITHIN REACH. WILL CONTINUE PLAN OF CARE.
[2021-01-22 08:00] VITALS: BP 118/49
[2021-01-22] MEDS: MAGNESIUM OXIDE 400 MG TABLET PO SCH (08:49)
[2021-01-22] MEDS: ASPIRIN EC 325 MG TABLET.DR PO SCH (08:49)
[2021-01-22] MEDS: DOCUSATE SODIUM 100 MG CAPSULE PO SCH ×2 (08:49→16:15)
[2021-01-22] MEDS: BUPROPION XL 150 MG TAB.ER.24 PO SCH (08:49)
[2021-01-22] MEDS: FAMOTIDINE (20 MG) 20 MG TABLET PO SCH ×2 (08:49→16:15)
--- NOTE | 2021-01-22 18:10 | NUR ---
MS RN CLOSING NOTE PATIENT RESTING IN BED. A/O X4. AMBULATORY WITH A WALKER. ON ROOM AIR, TOLERATING WELL. NO SOB NOTED. NO S/S OF RESPIRATORY DISTRESS. ALL NEEDS HAVE BEEN MET AND ATTENDED. ALL DUE MEDS GIVEN ORDERED. SAFETY MEASURES MAINTAINED. BED IN LOWEST POSITION, BRAKES LOCKED. SIDE RAILS UP X2. CALL LIGHT WITHIN REACH. WILL ENDORSE CONTINUITY OF CARE TO ONCOMING SHIFT.
[2021-01-22] MEDS: TYLENOL 650 MG TABLET PO PRN (19:45)
[2021-01-22 20:00] VITALS: BP 152/63
--- NOTE | 2021-01-22 20:00 | NUR ---
MS RN OPENING NOTE Patient is awake, A&Ox4. No distress noted. C/o mild pain to R knee 10/30. PRN Tylenol given. Patient verbalizes walking a lot today and is okay with using the CPM machine one more time before sleeping. Able to verbalize needs.
[2021-01-22] MEDS: GABAPENTIN 100 MG CAPSULE PO SCH (21:03)
[2021-01-23] MEDS: TYLENOL 650 MG TABLET PO PRN ×3 (01:39→10:25)
--- NOTE | 2021-01-23 06:12 | NUR ---
MS RN CLOSING NOTE Patient is A&Ox4. VSS. C/o tolerable 3/10 pain to R knee relieved by PRN tylenol. R knee site still slightly swollen, no redness or discharge from marvel surgical site. Tolerating ambulation well at this time.
[2021-01-23 08:00] VITALS: BP 140/67
--- NOTE | 2021-01-23 08:02 | NUR ---
MS/RN OPENING NOTE RECEIVED PATIENT IN BED. A/O X4. ON ROOM AIR, TOLERATING WELL. NO SOB NOTED. IN NO APPARENT DISTRESS. PT. REFUSED TO HAVE IV ACCESS. NO COMPLAINTS OF PAIN AT THIS TIME. SAFETY MEASURES MAINTAINED. BED IN LOWEST POSITION, BRAKES LOCKED. SIDE RAILS UP X2. CALL LIGHT WITHIN REACH. WILL CONTINUE TO MONITOR PATIENT.
[2021-01-23] MEDS: ASPIRIN EC 325 MG TABLET.DR PO SCH (08:30)
[2021-01-23] MEDS: BUPROPION XL 150 MG TAB.ER.24 PO SCH (08:30)
[2021-01-23] MEDS: FAMOTIDINE (20 MG) 20 MG TABLET PO SCH (08:30)
[2021-01-23] MEDS: MAGNESIUM OXIDE 400 MG TABLET PO SCH (08:31)
[2021-01-23] MEDS: DOCUSATE SODIUM 100 MG CAPSULE PO SCH (08:31)
--- NOTE | 2021-01-23 10:30 | NUR ---
PATIENT REPORTED HAVING PAIN OF A 5/10 ON A SCALE BUT REQUESTED TO ONLY HAVE TYLENOL 650MG PO. OFFERED TO GIVE HER A STRONGER PAIN MEDICATION BUT REFUSED AND ONLY WANTED TYLENOL FOR PAIN. TYLENOL 650MG GIVEN PO. WILL CONTINUE TO MONITOR.
--- NOTE | 2021-01-23 13:30 | NUR ---
MS/RN NOTES CALLED THE ACUTE REHAB UNIT OF [facility] AND WAS ABLE TO SPEAK TO MONISHA HOWELL FOR PATIENT'S ENDORSEMENTS. LYNDA ACKNOWLEDGED ENDORSEMENTS GIVEN.
--- NOTE | 2021-01-23 14:35 | NUR ---
PATIENT IS ALERT AND ORIENTED X4,ABLE TO MAKE NEEDS KNOWN. AMBULATORY WITH A WALKER. MEDICALLY STABLE AND GOT DISCHARGED TO BE TRANSFERED TO [facility]. DISCHARGE INSTRUCTIONS DISCUSSED WITH THE PATIENT. BELONGINGS ACCOUNTED FOR. PATIENT WAS PICKED UP BY Addendum: 01/23/21 at 1440 by SAMI STEPHENSON RN ERROR
--- NOTE | 2021-01-23 14:35 | NUR ---
MS/PRODUCTION LINE WELDER NOTE PATIENT IS ALERT AND ORIENTED X4,ABLE TO MAKE NEEDS KNOWN. ON ROOM AIR. NO SOB/DISTRESS NOTED. AMBULATORY WITH A WALKER. MEDICALLY STABLE AND IS DISCHARGE TODAY TO TRANSFER TO [facility]UTE RE[facility] UN[facility] OF [facility]. DISCHARGE INSTRUCTIONS DISCUSSED WITH THE PATIENT. BELONGINGS ACCOUNTED FOR. PATIENT WAS ENDORSED TO AND PICKED UP BY GRE[facility] MEL[facility]DE[facility] OF [facility]IA NON[facility]EMERGENCY TRANSPORTATION. V/S TAKEN AND RECORDED BP- 129/67, P-85, RR-18, T-97.7 AND O2 SAT OF 97% ON ROOM AIR.
== END 2021-01-23 14:30 | DRG 470 ==
LOC: DS 06:46 → MED 12:02
PROVIDERS: ADMIT Nurse Practitioner Acute Care; ATTEND Nurse Practitioner Acute Care
PROC: 0SRC0J9 Replacement of Right Knee Joint with Synthetic Substitute, Cemented, Open Approach (ICD-10-PCS; principal; 2021-01-15)
DX: M17.11 Unilateral primary osteoarthritis, right knee (principal); Z68.41 Body mass index [BMI] 40.0-44.9, adult; D68.59 Other primary thrombophilia; F32.9 Major depressive disorder, single episode, unspecified; Y99.0 Civilian activity done for income or pay; E66.01 Morbid (severe) obesity due to excess calories; X58.XXXA Exposure to other specified factors, initial encounter; Z90.711 Acquired absence of uterus with remaining cervical stump; I49.3 Ventricular premature depolarization
CPT/HCPCS: 36415; 80048-TC; 80061-TC; 81001; 83735-TC; 84100-TC; 85025-TC; 86850-TC; 87081-TC; 88305-TC; 88311-TC; 97110-TC; 97112-TC; 97116-TC; 97530-TC; 97760-TC; A4217; A6253; A6403; C1713; C1776; G0378; J0690; J1100; J1170; J1885; J2250; J2270; J2405; J2704; J3010; J3490; J7050; J7060; J7120; L1830